=== PATIENT | male | born 1945 | race Caucasian/White ===

== ENCOUNTER → 2018-07-26 | Outpatient (CLI) | payer MEDICARE ==
--- NOTE | 2018-07-27 07:52 | RAD ---
CHEST PA LATERAL Clinical indications: SHORT OF BREATH ON EXERTION, COPD COMPARISON: None available. Findings: Hyperinflation is seen consistent with COPD. No acute lung infiltrate or pleural effusion or pulmonary edema or lung mass or pneumothorax is seen. The heart size, pulmonary vasculature, mediastinum and both des are unremarkable. The osseous structures appear intact. Impression: No acute radiographic abnormality is seen. COPD. Electronically signed by: Rommel Barron MD (07/27/2018 7:49 AM) [facility]
== END | disposition home or self-care (01) ==
LOC: DXRAD 16:56
PROVIDERS: ATTEND Physician Assistant
DX: J44.9 Chronic obstructive pulmonary disease, unspecified (principal)
CPT/HCPCS: 71046

== ENCOUNTER → 2019-07-23 | Day surgery (SDC) | payer MEDICARE, OTHER ==
[~2019-07-23] MED LIST: ACETAMINOPHEN 325 MG TABLET PO PRN; ALBUTEROL SULFATE 2.5 MG/3 ML NEBU. NEB PRN; ASPI81TA59 PO; ATROPINE 0.5 MG/5 ML DISP.SYRIN. IV PRN; BALANCED SALT IRRIG OPHTH SOLN 15 ML BOTTLE. IRR ONE; CATARACT OPHTH GEL 0.5 ML SYRINGE. OS ONE; CHONDROIT-SOD-HYALURONATE KIT. OS ONE; EPINEPHrine AMPULE 0.5 MG in BALANCED SALT IRRIG SOLN PLUS 500 ML IO ONE; ERYTHROMYCIN 0.5% OPHTH OINTMENT 1GM TUBE. OS ONE; FLUT1AER IH; HYALURONIDASE 75UNITS in LIDOCAINE 2% PF OPHTH 10 ML SYRINGE. OS ONE; KETOROLAC TROMETHAMINE 0.5% OPHTH SOLUTION BOTTLE. ONE; KETOROLAC TROMETHAMINE 0.5% OPHTH SOLUTION BOTTLE. OS ONE; KETOROLAC TROMETHAMINE 0.5% OPHTH SOLUTION BOTTLE. OS SCH; LIDO/EPI IN BSS OPHTH 4 ML SYRINGE OS ONE; LISI10TA2 PO; MOXIFLOXACIN 0.5% OPHTH SOLUTION 3ML BOTTLE. OS SCH; MULT-245 PO; OMEG1CAP50 PO; ONDANSETRON PF 4 MG/2 ML VIAL. IV PRN; POVIDONE-IODINE 5% OPHTH SOLUTION 30ML BOTTLE. OS ONE; PROPOFOL 20 ML IV ONE; TETRACAINE 0.5% OPHTH SOLUTION 4ML BOTTLE. OS ONE; TETRACAINE 0.5% OPHTH SOLUTION 4ML BOTTLE. OU ONE; UBID10CA5 PO; diphenhydrAMINE 50 MG/ML VIAL IV PRN; prednisoLONE ACETATE 1% OPHTH SUSPENSION 5ML BOTTLE. ONE; prednisoLONE ACETATE 1% OPHTH SUSPENSION 5ML BOTTLE. OS ONE; prednisoLONE ACETATE 1% OPHTH SUSPENSION 5ML BOTTLE. OS SCH
[2019-07-23] MEDS: MOXIFLOXACIN 0.5% OPHTH SOLUTION 3ML BOTTLE. OS SCH ×3 (07:32→07:45)
--- NOTE | 2019-07-23 08:33 | PDOC4 ---
Cataract Toric OS Date of Procedure: Jul 23, 2019 Preoperative Doagnosis: 1. Senile Cataract, OS 2. Corneal astigmatism, OS Postoperative Diagnosis: 1. Senile Cataract, OS 2. Corneal astigmatism, OS Anesthesia: Local with monitored anesthesia care Surgeon: William Sam D.O. Procedure: Phacoemulsification with toric intraocular lens implant, OS Findings: 1. Senile Cataract, OS 2. Corneal astigmatism, OS Indications: Worsening vision interfering with patient's lifestyle Narrative: After discussing the risks, complications and alternatives, including but not limited to loss of vision, infection, bleeding, swelling, anesthetic reaction, capsule rupture with vitreous loss, etc., the patient was given topical anesthetic in the eye. The eye was then marked at the 3, 6 and 9 o'clock limbus. Jaqueline-ocular anesthesia was given and a [place] Balloon was applied for 10 minutes. The patient was transferred to the main operating room and was prepped and draped in the usual sterile fashion and positioned under the microscope. A lid speculum was placed. A temporal clear corneal incision was made with a keratome and viscoelastic was injected into the anterior chamber. A 5.5 mm diameter corneal flip was placed. A side port incision was made. A continuous tear capsulorrhexis was performed, then hydrodissection was accomplished with balanced salt solution. They phacoemulsification needle was placed in the eye and the nucleus was emulsified. The remaining cortical material was removed with the irrigation and aspiration apparatus. The capsule was polished as needed. The posterior capsule was noted to be clean and intact. Viscoelastic was injected into the eye inflating the capsular bag. The cornea was marked at the appropriate meridian for toric IOL implantation. An intraocular lens was injected into the eye, unfolding as desired and was positioned at the appropriate meridian. The wound edges were hydrated with balanced salt solution and there were no leaks. Viscoelastic was injected over the limbal incisions. Antibiotic and steroid were placed on the eye. The lid speculum was removed and a patch and Fuentes shield were applied. There were no complications and the patient was taken to the PACU in good condition. WILLIAM SAM DO Jul 23, 2019 08:32
[2019-07-23 08:45] VITALS: BP 149/62
== END ==
LOC: SURG 06:27
PROVIDERS: ATTEND Ophthalmology
DX: H52.202 Unspecified astigmatism, left eye (principal); H25.12 Age-related nuclear cataract, left eye
CPT/HCPCS: 66984; J0171; J2704; V2632

== ENCOUNTER → 2019-08-13 | Day surgery (SDC) | payer MEDICARE, OTHER ==
[~2019-08-13] MED LIST changes: -ACETAMINOPHEN 325 MG TABLET PO PRN; -ALBUTEROL SULFATE 2.5 MG/3 ML NEBU. NEB PRN; -ATROPINE 0.5 MG/5 ML DISP.SYRIN. IV PRN; +CATARACT OPHTH GEL 0.5 ML SYRINGE. OD ONE; -CATARACT OPHTH GEL 0.5 ML SYRINGE. OS ONE; +CHONDROIT-SOD-HYALURONATE KIT. OD ONE; -CHONDROIT-SOD-HYALURONATE KIT. OS ONE; +ERYTHROMYCIN 0.5% OPHTH OINTMENT 1GM TUBE. OD ONE; -ERYTHROMYCIN 0.5% OPHTH OINTMENT 1GM TUBE. OS ONE; +HYALURONIDASE 75UNITS in LIDOCAINE 2% PF OPHTH 10 ML SYRINGE. OD ONE; -HYALURONIDASE 75UNITS in LIDOCAINE 2% PF OPHTH 10 ML SYRINGE. OS ONE; +IPRATRPIUM/ALBUTEROL 0.5/2.5MG 3 ML NEBU. NEB PRN; +IV RINGERS SOLUTION,LACTATED 1,000 ML IV SCH; +KETOROLAC TROMETHAMINE 0.5% OPHTH SOLUTION BOTTLE. OD SCH; -KETOROLAC TROMETHAMINE 0.5% OPHTH SOLUTION BOTTLE. OS ONE; -KETOROLAC TROMETHAMINE 0.5% OPHTH SOLUTION BOTTLE. OS SCH; -LIDO/EPI IN BSS OPHTH 4 ML SYRINGE OS ONE; +MIDAZOLAM HCL PF 2 MG/2 ML VIAL. IV ONE; +MOXIFLOXACIN 0.5% OPHTH SOLUTION 3ML BOTTLE. OD SCH; -MOXIFLOXACIN 0.5% OPHTH SOLUTION 3ML BOTTLE. OS SCH; +POVIDONE-IODINE 5% OPHTH SOLUTION 30ML BOTTLE. OD ONE; -POVIDONE-IODINE 5% OPHTH SOLUTION 30ML BOTTLE. OS ONE; +TETRACAINE 0.5% OPHTH SOLUTION 4ML BOTTLE. OD ONE; -TETRACAINE 0.5% OPHTH SOLUTION 4ML BOTTLE. OS ONE; -diphenhydrAMINE 50 MG/ML VIAL IV PRN; +prednisoLONE ACETATE 1% OPHTH SUSPENSION 5ML BOTTLE. OD SCH; -prednisoLONE ACETATE 1% OPHTH SUSPENSION 5ML BOTTLE. OS ONE; -prednisoLONE ACETATE 1% OPHTH SUSPENSION 5ML BOTTLE. OS SCH
[2019-08-13] MEDS: MOXIFLOXACIN 0.5% OPHTH SOLUTION 3ML BOTTLE. OD SCH ×3 (07:10→07:20)
[2019-08-13 08:27] VITALS: BP 133/73
--- NOTE | 2019-08-13 09:20 | PDOC4 ---
Phaco/Toric IOL/OD Date of Procedure: Aug 13, 2019 Preoperative Diagnosis: 1. Senile Cataract, OD 2. Corneal astigmatism, OD Postoperative Diagnosis: 1. Senile Cataract, OD 2. Corneal astigmatism, OD Anesthesia: Local with monitored anesthesia care Surgeon: William Sam D.O. Procedure: Phacoemulsification with toric intraocular lens implant, at 180 degrees, OD. Findings: 1. Senile Cataract, OD 2. Corneal astigmatism, OD Indications: Worsening vision interfering with patient's lifestyle Narrative: After discussing the risks, complications and alternatives, including but not limited to loss of vision, infection, bleeding, swelling, anesthetic reaction, capsule rupture with vitreous loss, etc., the patient was given a topical anesthetic in the eye. The eye was then marked at 3, 6 and 9:00 limbus. Periocular anesthesia was given and a [place] balloon was applied for 10 minutes. The patient was transferred to the main operating room and was prepped and draped in the usual sterile fashion and positioned under the microscope. A lid s peculum was placed. A temporal clear corneal incision was made with a keratome and viscoelastic was injected into the end anterior chamber. A side port incision was made. A 5.5 mm diameter corneal flip was placed. A continuous tear capsulorrhexis was performed, and hydrodissection was accomplished with balanced salt solution. The phacoemulsification needle was placed in the eye and the nucleus was signal supplied. The remaining cortical material was removed with the irrigation and aspiration apparatus. The capsule was polished as needed. The posterior capsule was noted to be clean and intact. Viscoelastic was injected into the eye inflating the capsular bag. The cornea was marked at the appropriate meridian for toric IOL implantation. An intraocular lens was injected into the eye, unfolding as desired and was positioned in the capsular bag. The viscoelastic was aspirated from the eye and the toric IOL was positioned at the appropriate meridian. The wound edges were hydrated with balanced salt solution and there were no leaks. Viscoelastic was injected over the limbal incisions. Antibiotic and steroids were placed on the eye. The lid s peculum was removed and a patch and Fuentes shield were applied. There were no complications and the patient was taken to the PACU in good condition. WILLIAM SAM DO Aug 13, 2019 09:20
== END | disposition home or self-care (01) ==
LOC: SURG 06:31
PROVIDERS: ATTEND Ophthalmology
DX: H25.12 Age-related nuclear cataract, left eye (principal); H52.209 Unspecified astigmatism, unspecified eye; I10 Essential (primary) hypertension; J44.9 Chronic obstructive pulmonary disease, unspecified; Z79.82 Long term (current) use of aspirin; Z79.899 Other long term (current) drug therapy; Z88.1 Allergy status to other antibiotic agents
CPT/HCPCS: 66984; J0171; J2704; V2787